=== PATIENT | female | born 1970 | race Caucasian/White ===

== ENCOUNTER 2016-12-08 00:38 | Emergency (ER) | payer OTHER ==
[2016-12-08] MEDS ORDERED: NS 0.9% 1000 ML* 1,000 ML IV ONE (01:37)
[2016-12-08] MEDS ORDERED: Ketorolac INJ* 30 MG/ML 1 ML VIAL IV ONE (01:37)
--- NOTE | 2016-12-08 01:57 | ED ---
Inocente Hensley Benjamin, scribed for Riky Marie MD on 12/08/16 at 0139 . Abdominal Pain/Female - HPI Summary HPI Summary: 46yo female c/o sudden onset of RLQ pain since 1830. Pt reports 10 out of 10 pain. Denies N/V/D, or fever. Denies any similar pain prior to today. - History of Current Complaint Chief Complaint: EDAbdPain Stated Complaint: RIGHT ABD PAIN Time Seen by Provider: 12/08/16 01:33 Hx Obtained From: Patient Hx Last Menstrual Period: jun 13 Onset/Duration: Sudden Onset, Lasting Hours, Still Present Timing: Constant Severity Initially: Severe Severity Currently: Severe Pain Intensity: 10 Pain Scale Used: 0-10 Numeric Location: Discrete At: RLQ Radiates: No Aggravating Factor(s): Nothing Alleviating Factor(s): Nothing Associated Signs and Symptoms: Positive: Negative. Negative: Nausea, Vomiting, Diarrhea Allergies/Adverse Reactions: Allergies Allergy/AdvReac Type Severity Reaction Status Date / Time Tomato Allergy Facial Verified 12/08/16 00:42 Redness/Flushing PMH/Surg Hx/FS Hx/Imm Hx Endocrine/Hematology History: Denies: Hx Diabetes, Hx Thyroid Disease Cardiovascular History: Denies: Hx Hypertension Respiratory History: Reports: Hx Asthma - CONTROLLED WITH INHALER PRN Denies: Hx Chronic Obstructive Pulmonary Disease (COPD) GI History: Denies: Hx Ulcer Musculoskeletal History: Reports: Hx Arthritis - LEFT SIDE OF BODY Sensory History: Denies: Hx Contacts or Glasses, Hx Hearing Aid Opthamlomology History: Denies: Hx Contacts or Glasses Neurological History: Reports: Hx Headaches - 2-3 TIMES A WEEK (NO MEDS), Hx Migraine - 2-3 TIMES A WEEK (NO MEDS) - Surgical History Surgery Procedure, Year, and Place: LEFT ANKLE-1976. TONSILLECTOMY-1981 Hx Anesthesia Reactions: No Infectious Disease History: No Infectious Disease History: Denies: Hx Clostridium Difficile, Hx Hepatitis, Hx Human Immunodeficiency Virus (HIV), Hx of Known/Suspected MRSA, Hx Shingles, Hx Tuberculosis, Hx Known/ Suspected VRE, Hx Known/Suspected VRSA, History Other Infectious Disease, Traveled Outside the [place] in Last 30 Days - Family History Known Family History: Positive: Hypertension - Social History Alcohol Use: None Substance Use Type: Reports: None Smoking Status (MU): Heavy Every Day Tobacco Smoker Type: Cigarettes Amount Used/How Often: 1/2 PPD X 20 YRS Have You Smoked in the Last Year: Yes Review of Systems Constitutional: Negative Eyes: Negative ENT: Negative Cardiovascular: Negative Respiratory: Negative Positive: Abdominal Pain Genitourinary: Negative Musculoskeletal: Negative Skin: Negative Neurological: Negative Psychological: Normal All Other Systems Reviewed And Are Negative: Yes Physical Exam Triage Information Reviewed: Yes Vital Signs On Initial Exam: Initial Vitals Temp Pulse Resp BP Pulse Ox 98.8 F 79 18 131/73 96 12/08/16 00:42 12/08/16 00:42 12/08/16 00:42 12/08/16 00:42 12/08/16 00:42 Vital Signs Reviewed: Yes Appearance: Positive: Well-Appearing, No Pain Distress Skin: Positive: Warm Eyes: Positive: EOMI, ABBIE ENT: Positive: Hearing grossly normal Neck: Positive: Supple Respiratory/Lung Sounds: Positive: Clear to Auscultation, Breath Sounds Present Cardiovascular: Positive: RRR Abdomen Description: Positive: Nontender, No Organomegaly, Soft Bowel Sounds: Positive: Present Musculoskeletal: Positive: Strength/ROM Intact Neurological: Positive: Sensory/Motor Intact, Alert, Oriented to Person Place, Time Psychiatric: Positive: Affect/Mood Appropriate Diagnostics - Vital Signs Vital Signs Temp Pulse Resp BP Pulse Ox 12/08/16 00:42 98.8 F 79 18 131/73 96 - Laboratory Pertinent Lab Values Are: WNL Result Diagrams: 12/08/16 02:05 12/08/16 02:05 Lab Statement: Any lab studies that have been ordered have been reviewed, and results considered in the medical decision making process. Re-Evaluation - Re-Evaluation First Eval Change: Improved Abdominal Pain Fem Course/Dx - Diagnoses Provider Diagnoses: Abdominal pain Discharge - Discharge Plan Condition: Stable Disposition: HOME Patient Education Materials: Abdominal Pain (ED) Referrals: Michael Morgan MD [Primary Care Provider] - The documentation as recorded by the Inocente sales Benjamin accurately reflects the service I personally performed and the decisions made by me, Riky Marie MD.
[2016-12-08 02:31] LABS: Hematocrit 40 % (35-47); Hemoglobin 13.5 g/dl (12.0-16.0); Mean Corpuscular HGB Conc 34 g/dl (31-36); Mean Corpuscular Hemoglobin 32 pg (27-31); Mean Corpuscular Volume 93 fL (80-97); Mean Platelet Volume 11 um3 (7.4-10.4); Red Blood Count 4.27 10^6/ul (4.0-5.4); Red Cell Distribution Width 13 % (10.5-15); White Blood Count 9.6 10^3/ul (3.5-10.8)
[2016-12-08 02:40] LABS: Albumin 3.8 g/dL (3.2-5.2); BUN/Creatinine Ratio 13.2 (8-20); C Reactive Protein 8.93 mg/L (< 5.00); Calcium 9.1 mg/dL (8.6-10.3); EGFR African American 84.9 (>60); Potassium 3.6 mmol/L (3.5-5.0); Total Bilirubin 0.2 mg/dL (0.2-1.0); Total Protein 6.8 g/dL (6.4-8.9)
[2016-12-08 03:10] LABS: Urine Bacteria Absent (Absent); Urine Bilirubin Negative (Negative); Urine Glucose Negative (Negative); Urine Nitrite Negative (Negative)
[2016-12-08 03:24] VITALS: BP 117/58
== END 2016-12-08 03:22 | disposition home or self-care (01) ==
LOC: ED 00:38
DX: R10.31 Right lower quadrant pain (principal); F17.210 Nicotine dependence, cigarettes, uncomplicated
CPT/HCPCS: 36415; 80053; 81003; 81015; 83605; 83690; 85025; 86140; 87086; 96374; 99283; J1885

== ENCOUNTER 2016-12-11 12:43 | Emergency (ER) | payer OTHER ==
[2016-12-11 13:00] VITALS: BP 110/67
--- NOTE | 2016-12-11 13:41 | UC ---
Abdominal Pain Female HPI - HPI Summary HPI Summary: pt c/o of generalized abdominal pain X 4 days. Pt was seen on Monday at [facility] ED with c/o of suture removal and abdominal pain. Pt reports that "they didn't do anything for me". Pt states that she has been constipated over the last three days then she drank a bottle of prune juice this morning and had three episodes of loose stool. Pt states that her abdominal pain is waking her up at night. Seh denies any agravatin gor alleviating actions. - History of Current Complaint Chief Complaint: UCGI Stated Complaint: STOMACH PAIN Time Seen by Provider: 12/11/16 13:17 Hx Obtained From: Patient Hx Last Menstrual Period: 4 WEEKS AGO ?: No Onset/Duration: Sudden Onset, Lasting Days Timing: Constant Severity Initially: Mild Severity Currently: Moderate Location: Diffuse Radiates: No Character: Aching, Colicy, Dull, Sharp Aggravating Factor(s): Other: - palpation Alleviating Factor(s): Nothing Associated Signs and Symptoms: Positive: Constipation, Diarrhea Allergies/Adverse Reactions: Allergies Allergy/AdvReac Type Severity Reaction Status Date / Time Tomato Allergy Severe Facial Verified 12/11/16 12:51 Redness/Flushing Home Medications: Home Medications Acetaminophen [Acetaminophen Extra Stren] 2 tab PO TID PRN 12/11/16 [History Confirmed 12/11/16] PMH/Surg Hx/FS Hx/Imm Hx Previously Healthy: Yes Endocrine History Of: Denies: Diabetes, Thyroid Disease Cardiovascular History Of: Denies: Cardiac Disorders, Hypertension Respiratory History Of: Reports: Asthma - CONTROLLED WITH INHALER PRN Denies: COPD GI/ History Of: Denies: Ulcer Neurological History Of: Reports: Migraine - 2-3 TIMES A WEEK (NO MEDS) - Surgical History Surgical History: Yes Surgery Procedure, Year, and Place: LEFT ANKLE-1976. TONSILLECTOMY-1981. -LEFT WRIST SURGERY REMOVAL OF FOREIGN BODY - Family History Known Family History: Positive: Hypertension - Social History Alcohol Use: None Substance Use Type: None Smoking Status (MU): Heavy Every Day Tobacco Smoker Type: Cigarettes Amount Used/How Often: 1/2 PPD X 20 YRS Have You Smoked in the Last Year: Yes Review of Systems Constitutional: Negative Skin: Negative Eyes: Negative ENT: Negative Respiratory: Negative Cardiovascular: Negative Gastrointestinal: Abdominal Pain, Diarrhea, Other - constipation Genitourinary: Negative Motor: Negative Neurovascular: Negative Musculoskeletal: Negative Neurological: Negative Psychological: Negative All Other Systems Reviewed And Are Negative: Yes Physical Exam Triage Information Reviewed: Yes Appearance: Pain Distress Vital Signs: Initial Vital Signs Temp 99.0 F 12/11/16 12:53 Pulse 87 12/11/16 12:53 Resp 16 12/11/16 12:53 BP 110/67 12/11/16 12:53 Pulse Ox 95 12/11/16 12:53 Vital Signs Reviewed: Yes Neck exam: Normal Respiratory Exam: Normal Cardiovascular Exam: Normal Abdominal Exam: Other Abdomen Description: Positive: Other: - generalized tenderness Bowel Sounds: Positive: Present Musculoskeletal Exam: Normal Neurological Exam: Normal Psychological Exam: Normal Skin Exam: Normal Abd Pain Female Course/Dx - Differential Dx/Diagnosis Differential Diagnosis: Constipation, Irritable Bowel Syndrome Provider Diagnoses: Abdominal pain. Constipation Discharge - Discharge Plan Condition: Stable Disposition: HOME Patient Education Materials: Acute Abdominal Pain (ED), Constipation (ED)
--- NOTE | 2016-12-11 14:17 | RAD ---
INDICATION: Abdominal pain. COMPARISON: There are no prior studies available for comparison. TECHNIQUE: Supine and upright views of the abdomen were obtained. FINDINGS: There is a paucity of bowel gas limiting evaluation. The small bowel and colon appear nondistended. No free intraperitoneal air is seen. No abnormal calcifications are seen. IMPRESSION: SLIGHTLY LIMITED STUDY, NO EVIDENCE FOR OBSTRUCTION.
== END 2016-12-11 14:28 | disposition home or self-care (01) ==
LOC: UCEAST 12:43
DX: K59.00 Constipation, unspecified (principal); R10.84 Generalized abdominal pain; J45.909 Unspecified asthma, uncomplicated; Z32.02 Encounter for pregnancy test, result negative; F17.210 Nicotine dependence, cigarettes, uncomplicated
CPT/HCPCS: 74020; 81002; 81025; 99211; G0463

== ENCOUNTER 2016-12-16 21:48 | Emergency (ER) | payer OTHER ==
[2016-12-16 22:29] LABS: Hematocrit 40 % (35-47); Hemoglobin 13.5 g/dl (12.0-16.0); Mean Corpuscular HGB Conc 34 g/dl (31-36); Mean Corpuscular Hemoglobin 31 pg (27-31); Mean Corpuscular Volume 93 fL (80-97); Mean Platelet Volume 11 um3 (7.4-10.4); Red Blood Count 4.32 10^6/ul (4.0-5.4); Red Cell Distribution Width 13 % (10.5-15); White Blood Count 10.2 10^3/ul (3.5-10.8)
[2016-12-16 22:44] LABS: Albumin 3.8 g/dL (3.2-5.2); BUN/Creatinine Ratio 9.5 (8-20); C Reactive Protein 42.58 mg/L (< 5.00); Calcium 9.1 mg/dL (8.6-10.3); EGFR African American 93.1 (>60); EGFR Non-African American 72.4 (>60); Globulin 3.4 g/dL (2-4); Potassium 3.7 mmol/L (3.5-5.0); Total Bilirubin 0.2 mg/dL (0.2-1.0); Total Protein 7.2 g/dL (6.4-8.9)
[2016-12-17] MEDS ORDERED: Ondansetron INJ* 2 MG/ML VIAL IV ONE (00:09)
[2016-12-17] MEDS ORDERED: Morphine INJ* 4 MG/ML 1 ML CARPUJECT IV ONE (00:09)
--- NOTE | 2016-12-17 00:41 | ED ---
Sadia Hensley Matthew, scribed for Efe Wells on 12/16/16 at 2214 . Abdominal Pain/Female - HPI Summary HPI Summary: A 46 y/o female presents to the ED with RLQ abdominal pain since 9 days ago. The patient was sent by Dr. Malik for a tubal ovarian abscess, which was revealed by an abdominal CT done yesterday at [facility]. Associated symptoms include swelling. The patient denies vaginal discharge. She is a smoker with a FHx of diabetes, CHF, and CAD. - History of Current Complaint Stated Complaint: ABD PAIN Time Seen by Provider: 12/16/16 21:54 Hx Obtained From: Patient Hx Last Menstrual Period: 4 WEEKS AGO ?: No Onset/Duration: Lasting Weeks, Still Present Timing: Constant Severity Initially: Moderate Severity Currently: Moderate Location: Discrete At: RLQ Radiates: No Associated Signs and Symptoms: Positive: Other: - Swelling. Negative: Vaginal Discharge Allergies/Adverse Reactions: Allergies Allergy/AdvReac Type Severity Reaction Status Date / Time Tomato Allergy Severe Facial Verified 12/11/16 12:51 Redness/Flushing PMH/Surg Hx/FS Hx/Imm Hx Endocrine/Hematology History: Denies: Hx Diabetes, Hx Thyroid Disease Cardiovascular History: Denies: Hx Hypertension Respiratory History: Reports: Hx Asthma - CONTROLLED WITH INHALER PRN Denies: Hx Chronic Obstructive Pulmonary Disease (COPD) GI History: Denies: Hx Ulcer History: Reports: Hx Kidney Stones - AND GALL STONES MANY YRS AGO Musculoskeletal History: Reports: Hx Arthritis - LEFT SIDE OF BODY Sensory History: Denies: Hx Contacts or Glasses, Hx Hearing Aid Opthamlomology History: Denies: Hx Contacts or Glasses Neurological History: Reports: Hx Headaches - 2-3 TIMES A WEEK (NO MEDS), Hx Migraine - 2-3 TIMES A WEEK (NO MEDS) - Surgical History Surgery Procedure, Year, and Place: LEFT ANKLE-1976. TONSILLECTOMY-1981. -LEFT WRIST SURGERY REMOVAL OF FOREIGN BODY Hx Anesthesia Reactions: No Infectious Disease History: Denies: Hx Clostridium Difficile, Hx Hepatitis, Hx Human Immunodeficiency Virus (HIV), Hx of Known/Suspected MRSA, Hx Shingles, Hx Tuberculosis, Hx Known/ Suspected VRE, Hx Known/Suspected VRSA, History Other Infectious Disease - Family History Known Family History: Positive: Hypertension - Social History Alcohol Use: None Substance Use Type: Reports: None Smoking Status (MU): Heavy Every Day Tobacco Smoker Type: Cigarettes Amount Used/How Often: 1/2 PPD X 20 YRS Have You Smoked in the Last Year: Yes Review of Systems Constitutional: Negative Eyes: Negative ENT: Negative Cardiovascular: Negative Respiratory: Negative Positive: Abdominal Pain - RLQ Genitourinary: Negative Positive: Edema - RLQ Skin: Negative Neurological: Negative Psychological: Normal All Other Systems Reviewed And Are Negative: Yes Physical Exam Triage Information Reviewed: Yes Vital Signs Reviewed: Yes Appearance: Positive: Well-Appearing, Pain Distress - mild Skin: Positive: Warm, Skin Color Reflects Adequate Perfusion, Dry Head/Face: Positive: Normal Head/Face Inspection Eyes: Positive: EOMI, ABBIE ENT: Positive: Normal ENT inspection Neck: Positive: Supple, Nontender Respiratory/Lung Sounds: Positive: Clear to Auscultation, Breath Sounds Present Cardiovascular: Positive: RRR, Pulses are Symmetrical in both Upper and Lower Extremities Abdomen Description: Positive: Soft, Other: - RLQ tenderness Bowel Sounds: Positive: Present Musculoskeletal: Positive: Normal, Strength/ROM Intact Neurological: Positive: Normal, Sensory/Motor Intact, Alert, Oriented to Person Place, Time Psychiatric: Positive: Affect/Mood Appropriate Diagnostics - Laboratory Result Diagrams: 12/16/16 22:15 12/16/16 22:15 Lab Statement: Any lab studies that have been ordered have been reviewed, and results considered in the medical decision making process. - Ultrasound No standard instances Ultrasound Interpretation: Positive (See Comments) - No ovarian torsion. Color flow with appropriate arterial waveforms. 5.0 cm complex cyst right ovary, advise follow-up in 6 or 10 weeks to assess for resolution. 1.7 cm dominant follicle left ovary. No free fluid. 4.1cm fibroid posterior uterus. Endometrial stripe complex 9 mm thick. Unremarkable visualized portion of bladder. Ultrasound Interpretation Completed By: Radiologist Abdominal Pain Fem Course/Dx - Course Course Of Treatment: A 46 y/o female presents to the ED with RLQ abdominal pain since 9 days ago. The patient was sent by Dr. Mailk for a tubal ovarian abscess, which was revealed by an abdominal CT done yesterday at [facility]. Associated symptoms include swelling. The patient denies vaginal discharge. Labs were reviewed. US finds as stated above. Discussed the case with Dr. Montalvo who recommends outpatient follow-up at their office and pain medication. - Diagnoses Provider Diagnoses: Ovarian cyst, Abdominal pain - Provider Notifications Discussed Care Of Patient With: Dr. Montalvo (OG/MULTIPLE SCLEROSIS NURSE) at 00:31 -- Notified of patient's history and recommends outpatient follow-up at their office and pain medication. Discharge - Discharge Plan Condition: Stable Disposition: HOME Referrals: Michael Morgan MD [Primary Care Provider] - Smita Montalvo MD [Medical Doctor] - 3 Days Additional Instructions: Please follow-up with Dr. Montalvo in 3 days. The documentation as recorded by the Sadia sales Matthew accurately reflects the service I personally performed and the decisions made by , Efe Wells.
[2016-12-17 00:58] VITALS: BP 98/53
--- NOTE | 2016-12-17 08:30 | RAD ---
Indication: Question tubo-ovarian abscess on CT performed at [facility]. Comparison: No relevant prior exams available on the [facility] PACS. Technique: Transvaginal pelvic ultrasound. Report: 8.6 x 6.2 x 6.4 cm anteverted uterus. Posterior fundal subserosal fibroid measures 4.1 x 2.2 x 3.0 cm. 9 mm endometrium. Negative for free pelvic fluid. 6.0 x 4.0 x 3.1 cm RIGHT ovary with documented vascular flow is remarkable for a 5.0 x 2.9 x 3.5 cm cyst with minimal marginal irregularity without kathy papillary projections or significant marginal vascularity. 2.5 x 1.8 x 2.3 cm LEFT ovary with documented vascular flow is remarkable for a dominant 1.9 x 1.6 x 1.7 cm follicular cyst. No visualized extra ovarian adnexal region lesions. IMPRESSION: 1. 4.1 cm posterior fundal subserosal uterine fibroid. 2. Normal thickness endometrium. 3. 5.0 x 2.9 x 3.5 cm mildly complex RIGHT ovarian cyst most suspicious for a hemorrhagic cyst. Normal vascular flow documented at the surrounding normal RIGHT ovary however partial or intermittent torsion is not entirely excluded. In absence of earlier intervention reassessment of the cyst with ultrasound in 1-2 menstrual cycle suggested. 4. Small follicular cyst at the LEFT ovary without concern.
== END 2016-12-17 00:59 | disposition home or self-care (01) ==
LOC: ED 21:48
DX: N83.209 Unspecified ovarian cyst, unspecified side (principal); R10.31 Right lower quadrant pain; F17.210 Nicotine dependence, cigarettes, uncomplicated; R60.9 Edema, unspecified
CPT/HCPCS: 36415; 76830; 80053; 83690; 84702; 85025; 85610; 85730; 86140; 87040; 96374; 96375; 99283; J2270; J2405